=== PATIENT | female | born 1960 | race Hispanic/Latino ===

== ENCOUNTER 2017-08-26 09:39 | Emergency (ER) | payer OTHER, BC ==
[~2017-08-26] VITALS: Ht 149.9 cm; Wt 61.2 kg
== END 2017-08-26 12:10 | disposition home or self-care (01) ==
LOC: ED 09:39 → EDBD 09:40 → ED 12:10
DX: Z77.29 Contact with and (suspected) exposure to other hazardous substances (principal)
CPT/HCPCS: 80053; 80176; 81001; 85025; 96374; 99283; G0480; J7030